=== PATIENT | female | born 2000 | race Two or more races ===

== ENCOUNTER 2023-03-12 19:39 | Emergency (ER) | payer OTHER ==
[~2023-03-12] VITALS: Ht 165.1 cm; Wt 82.0 kg
[2023-03-12 20:02] VITALS: BP 142/86; PULSE 80; RESP 22; O2SAT 98
[2023-03-12 21:14] LABS: Eosinophils # (auto) 0 10 ^3/uL (0-0.8); Eosinophils % (auto) 0.2 % (0.0-7.0); Hematocrit 40.3 % (36.0-46.0); White Blood Cell 12.2 10^3/uL (4.4-10.8)
[2023-03-12 21:15] LABS: Basophils # (auto) 0 10 ^3/uL (0-0.2); Basophils % (auto) 0.3 % (0.0-2.0); Hemoglobin 13.2 g/dL (12.2-16.2); Lymphocytes # (auto) 1.8 10 ^3/uL (0.4-5.4); Lymphocytes % (auto) 14.7 % (10.0-50.0); Mean Corpuscular Hemoglobin 25.8 pg (28.0-32.0); Mean Corpuscular Hgb Conc. 32.7 g/dL (32.0-36.0); Mean Corpuscular Volume 78.7 fL (80.0-100.0); Monocytes # (auto) 0.4 10 ^3/uL (0-1.3); Monocytes % (auto) 3.7 % (0.0-12.0); Neutrophils # (auto) 9.9 10 ^3/uL (1.6-8.6); Neutrophils % (auto) 81.1 % (37.0-80.0); Red Blood Cells 5.12 10^6/uL (4.0-5.20); Red Cell Distribution Width 15.8 % (11.8-14.3)
[2023-03-12 21:31] LABS: Albumin 3.6 g/dL (3.4-5.0); BUN/Creatinine Ratio 13.3 (10.0-20.0); Calcium 8.9 mg/dL (8.5-10.1); Magnesium 2.3 mg/dL (1.6-2.6); Potassium 3.8 mmol/L (3.5-5.1)
[2023-03-12 21:33] LABS: Bilirubin, Total 0.4 mg/dL (0.2-1.0); Total Protein 8.2 g/dL (6.4-8.2)
[2023-03-12] MEDS ORDERED: KETOROLAC TROMETH 30 MG/ML 1ML VIAL IV ONE (22:00)
[2023-03-12] MEDS ORDERED: TAMS-35 PO (23:30)
[2023-03-12] MEDS ORDERED: HYDR-4798 PO (23:30)
[2023-03-12] MEDS ORDERED: IBUP-1456 PO (23:30)
[2023-03-12] MEDS ORDERED: CEPH500C PO (23:30)
== END 2023-03-12 23:44 | disposition home or self-care (01) ==
LOC: EDBD 19:39 → ER 19:39
DX: N20.0 Calculus of kidney (principal); R10.2 Pelvic and perineal pain
CPT/HCPCS: 36415; 74176; 80053; 83690; 83735; 84702; 85025; 96374; 99285; J1885

== ENCOUNTER 2023-04-03 08:09 | Inpatient (IN) | payer OTHER ==
[~2023-04-03] VITALS: Ht 165.1 cm; Wt 176.6 kg
[~2023-04-03 08:09] MED LIST: CEPH500C PO; HYDR-4798 PO; IBUP-1456 PO; TAMS-35 PO
[2023-04-03] MEDS ORDERED: cloNIDine HCL 0.1 MG TAB PO ONE (08:30)
[2023-04-03 08:45] LABS: Urine Bacteria FEW /hpf (None Seen); Urine Blood 1+ /uL (Negative); Urine Clarity HAZY (Clear); Urine Color Yellow (Yellow); Urine Mucus FEW (None Seen); Urine Protein, UAD 1+ (Negative); Urine Urobilinogen Normal (Negative); Urine WBC 3 /hpf (0 - 5); Urine pH 5.5 (5.0-8.0)
[2023-04-03 08:48] LABS: Basophils # (auto) 0.1 10 ^3/uL (0-0.2); Eosinophils # (auto) 0.1 10 ^3/uL (0-0.8); Eosinophils % (auto) 1.1 % (0.0-7.0); Hemoglobin 13.9 g/dL (12.2-16.2); Mean Corpuscular Hemoglobin 25.8 pg (28.0-32.0); Mean Corpuscular Hgb Conc. 32.5 g/dL (32.0-36.0); Monocytes # (auto) 0.6 10 ^3/uL (0-1.3); Red Blood Cells 5.38 10^6/uL (4.0-5.20); White Blood Cell 11.1 10^3/uL (4.4-10.8)
[2023-04-03 08:49] LABS: Basophils % (auto) 0.5 % (0.0-2.0); Hematocrit 42.8 % (36.0-46.0); Lymphocytes # (auto) 1.7 10 ^3/uL (0.4-5.4); Lymphocytes % (auto) 15.1 % (10.0-50.0); Mean Corpuscular Volume 79.4 fL (80.0-100.0); Monocytes % (auto) 5.7 % (0.0-12.0); Neutrophils # (auto) 8.6 10 ^3/uL (1.6-8.6); Neutrophils % (auto) 77.6 % (37.0-80.0)
[2023-04-03 09:26] LABS: Alanine Aminotransferase 105 U/L (7-40); Albumin 4.7 g/dL (3.2-4.8); Alkaline Phosphatase 63 U/L (46-116); Anion Gap 7.8 (5-15); Aspartate Aminotransferase 72 U/L (13-40); Blood Urea Nitrogen 13 mg/dL (9-23); Calcium 9.4 mg/dL (8.5-10.1); Carbon Dioxide 24.2 mmol/L (20-30); Chloride 106 mmol/L (98-107); Glucose 106 mg/dL (74-106); Lipase 49 U/L (12-53); Magnesium 1.9 mg/dL (1.6-2.6); Potassium 4.2 mmol/L (3.5-5.1); Sodium 138 mmol/L (136-145)
[2023-04-03 09:27] LABS: Bilirubin, Total 0.5 mg/dL (0.2-1.0); Total Protein 8.1 g/dL (5.7-8.2)
[2023-04-03] MEDS ORDERED: ONDANSETRON HCL 4 MG/2 ML VIAL IV ONE (10:45)
[2023-04-03] MEDS ORDERED: SODIUM CHLORIDE 0.9% 1,000 ML IV ONE ×2 (10:45→11:15)
[2023-04-03] MEDS ORDERED: KETOROLAC TROMETH 30 MG/ML 1ML VIAL IV ONE (11:15)
[2023-04-03] MEDS ORDERED: FUROSEMIDE 40 MG/4 ML VIAL IV ONE (11:15)
[2023-04-03] MEDS ORDERED: TAMSULOSIN HYDROCHLORIDE 0.4 MG CAP PO ONE (11:15)
[2023-04-03] MEDS ORDERED: MANNITOL FTV 25% 12.5 GM/50 ML 50 ML IV ONE (12:00)
[2023-04-03] MEDS ORDERED: ACETAMINOPHEN 325 MG TAB PO PRN (12:15)
[2023-04-03] MEDS ORDERED: KETOROLAC TROMETH 30 MG/ML 1ML VIAL IV PRN (12:15)
[2023-04-03 13:10] LABS: Triglycerides 125 mg/dL (< 150)
[2023-04-03 13:11] LABS: Cholesterol 174 mg/dL (< 200); LDL Cholesterol 120 mg/dL (< 100)
[2023-04-03 13:12] LABS: HDL Cholesterol 37 mg/dL (40-59)
[2023-04-03] MEDS: SODIUM CHLORIDE 0.9% 1,000 ML IV SCH ×2 (15:57→23:32)
[2023-04-03] MEDS: TAMSULOSIN HYDROCHLORIDE 0.4 MG CAP PO SCH (19:16)
[2023-04-03 22:44] VITALS: RESP 18
[2023-04-03] MEDS ORDERED: DOCUSATE SOD 100 MG CAP PO ONE (23:30)
[2023-04-03] MEDS ORDERED: DOCUSATE SOD 100 MG CAP PO PRN (23:30)
[2023-04-03] MEDS: HYDROcodone-ACET 5/325MG TAB PO PRN (23:49)
[2023-04-04] MEDS: HYDROcodone-ACET 5/325MG TAB PO PRN ×4 (04:26→22:25)
[2023-04-04] MEDS: SODIUM CHLORIDE 0.9% 1,000 ML IV SCH ×2 (04:26→13:15)
[2023-04-04 05:00] VITALS: BP 123/68; PULSE 86; RESP 20; TEMP 97.8; O2SAT 94
[2023-04-04 06:13] LABS: Basophils # (auto) 0 10 ^3/uL (0-0.2); Eosinophils # (auto) 0.2 10 ^3/uL (0-0.8); Eosinophils % (auto) 2.1 % (0.0-7.0); Hemoglobin 11.8 g/dL (12.2-16.2); Lymphocytes # (auto) 2.5 10 ^3/uL (0.4-5.4); Monocytes # (auto) 0.5 10 ^3/uL (0-1.3)
[2023-04-04 06:17] LABS: Basophils % (auto) 0.4 % (0.0-2.0); Hematocrit 36.8 % (36.0-46.0); Lymphocytes % (auto) 28.8 % (10.0-50.0); Mean Corpuscular Hemoglobin 25.8 pg (28.0-32.0); Mean Corpuscular Hgb Conc. 32.1 g/dL (32.0-36.0); Mean Corpuscular Volume 80.4 fL (80.0-100.0); Monocytes % (auto) 5.8 % (0.0-12.0); Neutrophils # (auto) 5.6 10 ^3/uL (1.6-8.6); Neutrophils % (auto) 62.9 % (37.0-80.0); Nucleated Red Blood Cells % 0.1 %; Red Blood Cells 4.57 10^6/uL (4.0-5.20); Red Cell Distribution Width 16.2 % (11.8-14.3); White Blood Cell 8.8 10^3/uL (4.4-10.8)
[2023-04-04 06:30] LABS: Alanine Aminotransferase 69 U/L (7-40); Albumin 3.7 g/dL (3.2-4.8); Alkaline Phosphatase 51 U/L (46-116); Anion Gap 8.7 (5-15); Aspartate Aminotransferase 37 U/L (13-40); BUN/Creatinine Ratio 16.9 (10.0-20.0); Bilirubin, Total 0.6 mg/dL (0.2-1.0); Blood Urea Nitrogen 14 mg/dL (9-23); Calcium 8.6 mg/dL (8.5-10.1); Carbon Dioxide 22.3 mmol/L (20-30); Chloride 108 mmol/L (98-107); Glucose 97 mg/dL (74-106); Potassium 3.8 mmol/L (3.5-5.1); Sodium 139 mmol/L (136-145); Total Protein 6.4 g/dL (5.7-8.2)
[2023-04-04 09:00] VITALS: BP 126/88; PULSE 69; RESP 18; TEMP 97.6; O2SAT 99
[2023-04-04] MEDS: ENOXAPARIN SOD 40 MG/0.4 ML SYRINGE SC SCH (09:43)
[2023-04-04 13:00] VITALS: BP 134/85; PULSE 86; RESP 18; TEMP 97.7; O2SAT 97
[2023-04-04] MEDS ORDERED: MANNITOL FTV 25% 12.5 GM/50 ML 50 ML IV ONE (14:45)
[2023-04-04 17:00] VITALS: BP 143/60; PULSE 87; RESP 19; TEMP 98.8; O2SAT 95
[2023-04-04] MEDS: TAMSULOSIN HYDROCHLORIDE 0.4 MG CAP PO SCH (18:51)
[2023-04-04 20:00] VITALS: PULSE 83
[2023-04-04] MEDS ORDERED: ONDANSETRON HCL 4 MG/2 ML VIAL IV PRN (21:15)
[2023-04-04 22:00] VITALS: BP 122/62; PULSE 83; RESP 22; TEMP 98.6; O2SAT 96
[2023-04-05 05:00] VITALS: BP 130/81; PULSE 90; RESP 22; TEMP 98.2; O2SAT 100
[2023-04-05] MEDS: HYDROcodone-ACET 5/325MG TAB PO PRN (05:33)
[2023-04-05] MEDS ORDERED: CIPR-173 PO (08:04)
[2023-04-05] MEDS ORDERED: TRAM50TA2 PO (08:04)
[2023-04-05] MEDS ORDERED: TAMS-35 PO (08:04)
[2023-04-05 08:57] VITALS: BP 130/84; PULSE 84; RESP 19; TEMP 97.9; O2SAT 95
[2023-04-05 09:00] VITALS: BP 130/84; PULSE 84; RESP 19; TEMP 97.9; O2SAT 95
[2023-04-05] MEDS: ENOXAPARIN SOD 40 MG/0.4 ML SYRINGE SC SCH (10:00)
== END 2023-04-05 12:00 | disposition home or self-care (01) | DRG 465 ==
LOC: ER 08:09 → OVERFLOW 12:12 → CENTRAL 22:40
PROVIDERS: ADMIT Nurse Practitioner Family; ATTEND Family Medicine
DX: N13.2 Hydronephrosis with renal and ureteral calculous obstruction (principal); Z68.44 Body mass index [BMI] 60.0-69.9, adult; E66.01 Morbid (severe) obesity due to excess calories; I10 Essential (primary) hypertension; Z87.442 Personal history of urinary calculi; E86.0 Dehydration; Z79.899 Other long term (current) drug therapy; Z82.49 Family history of ischemic heart disease and other diseases of the circulatory system; Z83.3 Family history of diabetes mellitus; R74.8 Abnormal levels of other serum enzymes; Z71.3 Dietary counseling and surveillance
CPT/HCPCS: 36415; 74176; 80053; 80061; 81001; 83036; 83690; 83735; 84443; 84702; 85025; 87086; G0378; J1885; J2405